=== PATIENT | male | born 1955 | race African-American/Black ===

== ENCOUNTER 2016-11-21 00:21 | Emergency (ER) | payer MEDICAID ==
[~2016-11-21] VITALS: Ht 182.9 cm; Wt 95.3 kg
--- NOTE | 2016-11-21 01:00 | NUR ---
PT STATES HE LIED TO THE PARAMEDICS ABOUT TAKING PILLS BECAUSE HE WAS GETTING KICKED OUT THE [facility] AND WAS COMING T THE ER FOR A PLACE TO STAY, PT ADMITS TO NOT TAKING ANY PILLS AND STATES HE IS FEELING FINE, PT DENIES SI OR HI
[2016-11-21 04:21] LABS: CALCIUM, SERUM 9.3 mg/dL (8.5-10.1); CARBON DIOXIDE 29 mmol/L (21-32); CHLORIDE 105 mmol/L (98-107); CREATININE 0.9 mg/dL (0.6-1.3); GLUCOSE 106 mg/dL (74-106); POTASSIUM 3.9 mmol/L (3.5-5.1); SODIUM SERUM 143 mmol/L (136-145); UREA NITROGEN, BLOOD 17 mg/dL (7-18)
[2016-11-21 04:25] LABS: SALICYLATE 4.8 mg/dL (2.8-20.0)
[2016-11-21 04:26] LABS: BASOPHILS # (AUTO) 0.1 /CMM (0.0-0.2); BASOPHILS % (AUTO) 0.8 % (0.0-2.0); EOSINOPHILS # (AUTO) 0.4 /CMM (0.0-0.7); EOSINOPHILS % (AUTO) 3.8 % (0.0-6.0); HEMATOCRIT 47 % (39-51); HEMOGLOBIN 15.3 g/dL (13.5-17.5); LYMPHOCYTES # (AUTO) 3.7 /CMM (0.8-4.8); LYMPHOCYTES % (AUTO) 38.9 % (20.0-44.0); MEAN CORPUSCULAR HEMOGLOBIN 30 PG (26.0-33.0); MEAN CORPUSCULAR HGB CONC 33 g/dl (31.0-36.0); MEAN CORPUSCULAR VOLUME 91 fL (80-96); MONOCYTES # (AUTO) 0.7 /CMM (0.1-1.30); MONOCYTES % (AUTO) 7.1 % (2.0-12.0); NEUTROPHILS # (AUTO) 4.7 /CMM (1.8-8.9); NEUTROPHILS % (AUTO) 49.4 % (43.0-81.0); PLATELET COUNT (AUTO) 431 /CMM (150-450); RDW COEFFICIENT OF VARIATION 15.6 (11.5-15.0); RED BLOOD CELL COUNT(AUTO) 5.08 MIL/uL (4.5-6.0); WHITE BLOOD COUNT (AUTO) 9.4 K/uL (4.3-11.0)
[2016-11-21 04:32] LABS: ACETAMINOPHEN 0 ug/ml (10-30); ALCOHOL, BLOOD < 3 mg/dL (0-0)
--- NOTE | 2016-11-21 05:42 | NUR ---
the patient was seen and re evaluated in waiting room; no acute distress- all labs are back - WNL. Patient discharged to home in stable condition. Written and verbal after care instructions given. Patient verbalizes understanding of instruction.
--- NOTE | 2016-11-21 05:44 | NUR ---
The patient is homeless; denies suicidal - however- he wants to go to a homeless half-way. I will notify social work nurse for homeless resource.
[2016-11-21 05:46] VITALS: BP 145/70
== END 2016-11-21 05:47 | disposition home or self-care (01) ==
LOC: ER 00:23
DX: F32.9 Major depressive disorder, single episode, unspecified (principal)
CPT/HCPCS: 80048; 80329; 85025; 99284; A4606; G0480 ×2; Z7610; 36415

== ENCOUNTER 2017-02-07 21:21 | Emergency (ER) | payer MEDICARE, OTHER ==
[~2017-02-07] VITALS: Ht 182.9 cm; Wt 102.1 kg
[2017-02-07] MEDS ORDERED: ONDANSETRON HCL/PF 4 MG/2 ML VIAL IVP ONE (23:00)
[2017-02-07] MEDS ORDERED: HYDROMORPHONE INJ 2 MG/ML DISP.SYRIN IV ONE (23:00)
[2017-02-07] MEDS ORDERED: IV NS 0.9% 1,000 ML BAG IV ONE (23:00)
--- NOTE | 2017-02-07 23:09 | NUR ---
assumed care. pt laying in bed, no acute distress noted, resp even and unlabored. commercial maintenance technician call for ct's.
[2017-02-07 23:14] LABS: BASOPHILS # (AUTO) 0.1 /CMM (0.0-0.2); BASOPHILS % (AUTO) 1.2 % (0.0-2.0); EOSINOPHILS # (AUTO) 0.3 /CMM (0.0-0.7); EOSINOPHILS % (AUTO) 4.1 % (0.0-6.0); HEMATOCRIT 45 % (39-51); HEMOGLOBIN 14.4 g/dL (13.5-17.5); LYMPHOCYTES # (AUTO) 2.6 /CMM (0.8-4.8); LYMPHOCYTES % (AUTO) 30.1 % (20.0-44.0); MEAN CORPUSCULAR HEMOGLOBIN 29 PG (26.0-33.0); MEAN CORPUSCULAR HGB CONC 32 g/dl (31.0-36.0); MEAN CORPUSCULAR VOLUME 91 fL (80-96); NEUTROPHILS # (AUTO) 4.5 /CMM (1.8-8.9); NEUTROPHILS % (AUTO) 52.6 % (43.0-81.0); PLATELET COUNT (AUTO) 365 /CMM (150-450); RDW COEFFICIENT OF VARIATION 14.3 (11.5-15.0); RED BLOOD CELL COUNT(AUTO) 4.95 MIL/uL (4.5-6.0); WHITE BLOOD COUNT (AUTO) 8.5 K/uL (4.3-11.0)
--- NOTE | 2017-02-07 23:14 | NUR ---
pt transported to radiology for ct's.
[2017-02-07 23:21] LABS: CALCIUM, SERUM 9.5 mg/dL (8.5-10.1); CREATININE 0.9 mg/dL (0.6-1.3); POTASSIUM 3.6 mmol/L (3.5-5.1)
[2017-02-07 23:24] LABS: INR 2.9 (0.87-1.13)
[2017-02-07 23:27] LABS: BILIRUBIN,DIRECT 0.1 mg/dL (0.0-0.2); BILIRUBIN,TOTAL 0.2 mg/dL (0.2-1.0); TOTAL PROTEIN, SERUM 7.3 g/dL (6.4-8.2)
--- NOTE | 2017-02-07 23:33 | NUR ---
pt back from radiology. pending ct results.
[2017-02-07 23:36] LABS: PROTHROMBIN TIME 30.5 SECS (9.5-12.7)
[2017-02-08] MEDS ORDERED: HYDROCODONE/APAP 5/325MG 1 EACH TABLET PO ONE (00:30)
--- NOTE | 2017-02-08 02:39 | NUR ---
pt asleep, no acute distress noted, resp even and unlabored. call light within reach.
[2017-02-08] MEDS ORDERED: HYDROCODONE/APAP 5/325MG 1 EACH TABLET ONE (07:18)
--- NOTE | 2017-02-08 07:30 | NUR ---
Patient discharged to home in stable condition. Written and verbal after care instructions given. Patient verbalizes understanding of instruction.
[2017-02-08 08:10] VITALS: BP 146/71
== END 2017-02-08 08:11 | disposition home or self-care (01) ==
LOC: ER 21:23
DX: S16.1XXA Strain of muscle, fascia and tendon at neck level, initial encounter (principal); S39.012A Strain of muscle, fascia and tendon of lower back, initial encounter; R79.1 Abnormal coagulation profile; R51 Headache; M51.36 Other intervertebral disc degeneration, lumbar region; M50.30 Other cervical disc degeneration, unspecified cervical region; E11.65 Type 2 diabetes mellitus with hyperglycemia; Z86.711 Personal history of pulmonary embolism; W18.39XA Other fall on same level, initial encounter; Y93.89 Activity, other specified; Y92.89 Other specified places as the place of occurrence of the external cause; Y99.8 Other external cause status
CPT/HCPCS: 36415; 70450-TC; 72125-TC; 72131-TC; 80048-TC; 80076-TC; 82962-TC; 85025-TC; 85730-TC; A4606; Z7610

== ENCOUNTER 2017-02-23 16:29 | Emergency (ER) | payer MEDICARE, OTHER ==
[~2017-02-23] VITALS: Ht 185.4 cm; Wt 124.7 kg
--- NOTE | 2017-02-23 16:37 | NUR ---
pt bibra to er bed 10 c/o epigastric pain x 2 days. denies n/v/d denies chest pain. states hx of PE 2 weeks ago and was seen here. states unable to fill warfarin. gowned and placed on monitor. stable vitals. awaiting md gatse.
--- NOTE | 2017-02-23 16:43 | NUR ---
dr garcia at bedside for eval.
--- NOTE | 2017-02-23 16:55 | NUR ---
iv line started blood drawn and sent to lab.
[2017-02-23] MEDS ORDERED: IV NS 0.9% 1,000 ML BAG IV ONE (17:00)
[2017-02-23] MEDS ORDERED: ONDANSETRON HCL/PF 4 MG/2 ML VIAL IVP ONE (17:00)
--- NOTE | 2017-02-23 17:03 | NUR ---
pt to radiology for abdominal ct scan via [facility].
[2017-02-23] MEDS ORDERED: ONDANSETRON HCL/PF 4 MG/2 ML VIAL ONE (17:05)
[2017-02-23 17:19] LABS: BASOPHILS # (AUTO) 0.2 /CMM (0.0-0.2); EOSINOPHILS # (AUTO) 0.3 /CMM (0.0-0.7); EOSINOPHILS % (AUTO) 3.1 % (0.0-6.0); HEMATOCRIT 45 % (39-51); HEMOGLOBIN 14.4 g/dL (13.5-17.5); LYMPHOCYTES # (AUTO) 2.6 /CMM (0.8-4.8); LYMPHOCYTES % (AUTO) 27.4 % (20.0-44.0); MEAN CORPUSCULAR HEMOGLOBIN 28 PG (26.0-33.0); MEAN CORPUSCULAR HGB CONC 32 g/dl (31.0-36.0); MEAN CORPUSCULAR VOLUME 87 fL (80-96); MONOCYTES % (AUTO) 10.4 % (2.0-12.0); NEUTROPHILS # (AUTO) 5.6 /CMM (1.8-8.9); NEUTROPHILS % (AUTO) 57.1 % (43.0-81.0); PLATELET COUNT (AUTO) 413 /CMM (150-450); RDW COEFFICIENT OF VARIATION 13.4 (11.5-15.0); RED BLOOD CELL COUNT(AUTO) 5.13 MIL/uL (4.5-6.0); WHITE BLOOD COUNT (AUTO) 9.7 K/uL (4.3-11.0)
[2017-02-23 17:20] LABS: INR 0.97 (0.87-1.13); PROTHROMBIN TIME 10.1 SECS (9.5-12.7)
[2017-02-23 17:23] LABS: ALANINE AMINOTRANSFERASE 38 U/L (12-78); ALBUMIN 3.2 g/dL (3.4-5.0); ALKALINE PHOSPHATASE 85 U/L (46-116); ASPARTATE AMINOTRANSFERASE 21 U/L (15-37); BILIRUBIN,DIRECT 0.1 mg/dL (0.0-0.2); BILIRUBIN,TOTAL 0.4 mg/dL (0.2-1.0); CALCIUM, SERUM 9.7 mg/dL (8.5-10.1); CARBON DIOXIDE 30 mmol/L (21-32); CHLORIDE 101 mmol/L (98-107); CREATININE 0.7 mg/dL (0.6-1.3); GLUCOSE 97 mg/dL (74-106); LIPASE 55 U/L (73-393); POTASSIUM 3.7 mmol/L (3.5-5.1); SODIUM SERUM 136 mmol/L (136-145); TOTAL PROTEIN, SERUM 7.2 g/dL (6.4-8.2); UREA NITROGEN, BLOOD 11 mg/dL (7-18)
[2017-02-23 17:25] LABS: TROPONIN I < 0.017 ng/mL (0.00-0.056)
[2017-02-23] MEDS ORDERED: ENOXAPARIN SODIUM 60 MG/0.6 ML DISP.SYRIN SQ ONE (18:00)
[2017-02-23] MEDS ORDERED: ENOXAPARIN SODIUM 40 MG/0.4 ML DISP.SYRIN SQ ONE (18:06)
[2017-02-23] MEDS ORDERED: ENOXAPARIN SODIUM 80 MG/0.8 ML DISP.SYRIN SQ ONE (18:06)
--- NOTE | 2017-02-23 18:15 | NUR ---
lovenox given pharmacy to dose.
--- NOTE | 2017-02-23 18:32 | NUR ---
CALLED [facility] FOR TRANSPORT ETA OF 5 MINS WAS GIVEN.
--- NOTE | 2017-02-23 19:22 | NUR ---
Patient discharged to home in stable condition. Written and verbal after care instructions given. Patient verbalizes understanding of instruction.
[2017-02-23 19:23] VITALS: BP 162/94
== END 2017-02-23 19:24 | disposition home or self-care (01) ==
LOC: ER 16:30
DX: R10.13 Epigastric pain (principal); I10 Essential (primary) hypertension; E78.00 Pure hypercholesterolemia, unspecified; E11.40 Type 2 diabetes mellitus with diabetic neuropathy, unspecified; F17.210 Nicotine dependence, cigarettes, uncomplicated; E66.8 Other obesity; Z86.711 Personal history of pulmonary embolism
CPT/HCPCS: 36415; 71010; 74176; 80048; 80076; 83690; 84484; 85025; 85730; 93005; 96372; 96374; 99285; 99406; A4606; J1650 ×2; J2405; J7030; Z7610